=== PATIENT | male | born 1995 | race Caucasian/White ===

== ENCOUNTER 2017-01-13 11:31 | Emergency (ER) | payer OTHER ==
[~2017-01-13] VITALS: Wt 78.0 kg
[2017-01-13] MEDS ORDERED: IBUP-1542 PO (11:57)
--- NOTE | 2017-01-13 12:23 | ERD ---
ER Documentation Chief Complaint Date/Time DATE: 01/13/17 TIME: 12:16 Chief Complaint RIGHT WRIST POSSIBLE CYST X W3 YEARS, PAIN NOW HPI Patient is a 21-year-old male who presents emergency department with concerns of a cyst 3 and years on his right wrist. For 3 years on his right wrist. Patient states that the cyst comes and goes in nature. Most recent as this is been present for 2 weeks. Patient states the cyst is movable. 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 Patient denies any redness, warmth or active bleeding or discharge from the affected site. No recent travel. Patient denies any insect bites. ROS All systems reviewed and are negative except as per history of present illness. Medications Home Meds Active Scripts Ibuprofen* (Motrin*) 600 Mg Tab, 600 MG PO Q6, #30 TAB Prov:AALIYAH LEWIS PA-C 01/13/17 PMhx/Soc History of Surgery: No Anesthesia Reaction: No Hx Neurological Disorder: No Hx Respiratory Disorders: No Hx Cardiac Disorders: No Hx Psychiatric Problems: No Hx Miscellaneous Medical Probl: No Hx Alcohol Use: Yes Hx Substance Use: Yes (weed) Hx Tobacco Use: No Smoking Status: Former smoker Physical Exam Vitals Vital Signs Date Time Temp Pulse Resp B/P Pulse Ox O2 Delivery O2 Flow Rate FiO2 01/13/17 11:33 98.1 68 18 147/68 99 Physical Exam GENERAL: Well-developed, well-nourished male. Appears in no acute distress. HEAD: Normocephalic, atraumatic. EYES: Pupils are equally reactive bilaterally. EOMs grossly intact. No conjunctival erythema. ENT: Moist mucous membranes. No uvula deviation. No kissing tonsils. NECK: Supple. No meningismus. Normal range of motion of the neck. LUNG: Clear to auscultation bilaterally. No rhonchi, wheezing, rales or coarse breath sounds. HEART: Regular rate and rhythm. No murmurs, rubs or gallops. EXTREMITIES: Equal pulses bilaterally. No peripheral clubbing, cyanosis or edema. No unilateral leg swelling. NEUROLOGIC: Alert and oriented. Moving all four extremities without any difficulty. Normal speech. Steady gait. SKIN: Normal color. Warm and dry. RIGHT HAND: 2 cm circular ganglion cyst noted on the dorsal aspect of the patient's right wrist. Lesion is movable. No erythema, warmth, active bleeding or discharge. Neurovascular intact. Normal 2+ RP pulses. Normal capillary refill. He is able to supinate and pronate without difficulty. Normal range of motion of the wrist. Procedures/MDM MEDICAL DECISION MAKING: Patient is a 21-year-old male who presents with a cyst on his right hand 3 years. Patient states the cyst tends to come and go intermittently. The last 2 weeks the cyst has been present.. Vital signs were reviewed. Patient was afebrile. Physical exam findings were consistent with a ganglion cyst. Low suspicion for cellulitis, abscess, fracture or dislocation. Patient was advised that he should follow-up with manipulative therapy specialist for further management of his cyst. Need surgical removal if it becomes bothersome to him. Referral information provided. PRESCRIPTIONS: Ibuprofen DISCHARGE: At this time, patient is stable for discharge and outpatient management. RICE therapy and ROM exercises were advised to avoid stiffness. I have instructed the patient to follow-up with his/her primary care physician in 1-2 days. I have discussed with the patient the possibility of needing to see an manipulative therapy specialist for further workup and imaging if the pain persists. I have instructed the patient to promptly return to the ER for any new or worsening symptoms including increased pain, swelling, redness, warmth or fever. The patient and/or family expressed understanding of and agreement with this plan. All questions were answered. Home care instructions were provided. Disclaimer: Inadvertent spelling and grammatical errors are likely due to EHR/ dictation software use and do not reflect on the overall quality of patient care. Also, please note that the electronic time recorded on this note does not necessarily reflect the actual time of the patient encounter. Departure Diagnosis: Primary Impression: Ganglion cyst of dorsum of right wrist Condition: Stable Patient Instructions: Ganglion Cyst: Hand Referrals: COMMUNITY CLINICS YOU HAVE RECEIVED A MEDICAL SCREENING EXAM AND THE RESULTS INDICATE THAT YOU DO NOT HAVE A CONDITION THAT REQUIRES URGENT TREATMENT IN THE EMERGENCY DEPARTMENT. FURTHER EVALUATION AND TREATMENT OF YOUR CONDITION CAN WAIT UNTIL YOU ARE SEEN IN YOUR DOCTORS OFFICE WITHIN THE NEXT 1-2 DAYS. IT IS YOUR RESPONSIBILITY TO MAKE AN APPOINTMENT FOR FOLOW-UP CARE. IF YOU HAVE A PRIMARY DOCTOR --you should call your primary doctor and schedule an appointment IF YOU DO NOT HAVE A PRIMARY DOCTOR YOU CAN CALL OUR PHYSICIAN REFERRAL HOTLINE AT IF YOU CAN NOT AFFORD TO SEE A PHYSICIAN YOU CAN CHOSE FROM THE FOLLOWING [facility] [address] [facility] [address] [facility] [address] [facility] [address] [facility] [address] [facility]. [facility] [address] [facility]. [facility] YOU HAVE RECEIVED A MEDICAL SCREENING EXAM AND THE RESULTS INDICATE THAT YOU DO NOT HAVE A CONDITION THAT REQUIRES URGENT TREATMENT IN THE EMERGENCY DEPARTMENT. FURTHER EVALUATION AND TREATMENT OF YOUR CONDITION CAN WAIT UNTIL YOU ARE SEEN IN YOUR DOCTORS OFFICE WITHIN THE NEXT 1-2 DAYS. IT IS YOUR RESPONSIBILITY TO MAKE AN APPOINTMENT FOR FOLOW-UP CARE. IF YOU HAVE A PRIMARY DOCTOR --you should call your primary doctor and schedule and appointment IF YOU DO NOT HAVE A PRIMARY DOCTOR YOU CAN CALL OUR PHYSICIAN REFERRAL HOTLINE AT . IF YOU CAN NOT AFFORD TO SEE A PHYSICIAN YOU CAN CHOSE FROM THE FOLLOWING [facility]: [facility] [address] [place] [address] [facility] [address] [place] [address] [facility] [address] [place] [address] [facility] Hours: Mon-Fri 9:00 AM - 5:00 PM Additional Instructions: Call your primary care doctor TOMORROW for an appointment during the next 1-2 days.See the doctor sooner or return here if your condition worsens before your appointment time. AALIYAH LEWIS PA-C Jan 13, 2017 12:23
== END 2017-01-13 13:12 | disposition home or self-care (01) ==
LOC: FTE 11:31
DX: M67.431 Ganglion, right wrist (principal); Z87.891 Personal history of nicotine dependence
CPT/HCPCS: 99283